=== PATIENT | female | born 1970 ===

== ENCOUNTER 2018-07-13 19:43 | Emergency (ER) | payer OTHER ==
[2018-07-13 20:19] VITALS: BMI 29.2
[2018-07-13 20:20] VITALS: O2SAT 100
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
[2018-07-14 00:27] VITALS: BP 123/91; PULSE 82; RESP 17; TEMP 98.1
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
== END 2018-07-14 00:28 | disposition home or self-care (01) ==
LOC: ED 19:43
DX: M54.5 Low back pain (principal); V49.9XXA Car occupant (driver) (passenger) injured in unspecified traffic accident, initial encounter; M32.9 Systemic lupus erythematosus, unspecified
CPT/HCPCS: 72131; 96372; 99284; J1885